=== PATIENT | female | born 1950 | race Caucasian/White ===

== ENCOUNTER 2016-11-06 16:38 | Inpatient (IN) | payer OTHER ==
[~2016-11-06] VITALS: Ht 165.1 cm; Wt 92.0 kg
[~2016-11-06 16:38] MED LIST: AMIO200T PO; AMLO-147 PO; DOCU-144 PO; FERR-55 PO; FURO20TA3 PO; GABA300C16 PO; ISOS30TA5 PO; LANT3I SC; LEVO50TA74 PO; LOVA40TA PO; METO50TA16 PO; MULT1CAP20 PO; NOVO3I SC; OMEP20CA16 PO; RIVA20TA PO; SUCR1TAB27 PO
[2016-11-06] MEDS ORDERED: CEFEPIME 2GM/50 ML (PMX) 50 ML IVPB STA (17:37)
[2016-11-06] MEDS ORDERED: LEVO88TA3 PO (17:57)
[2016-11-06] MEDS ORDERED: METO50TA16 PO (17:58)
[2016-11-06] MEDS ORDERED: FURO40TA4 PO (17:59)
[2016-11-06] MEDS ORDERED: LISI10TA2 PO (17:59)
[2016-11-06 18:00] LABS: ADD SCAN DIFF NO
[2016-11-06] MEDS ORDERED: SUCR1TAB56 PO (18:00)
[2016-11-06] MEDS ORDERED: VANCOMYCIN 1 GM (PMX) 250 ML IVPB ONE (18:00)
[2016-11-06] MEDS ORDERED: LABETALOL HCL 20MG INJ IV ONE (18:00)
[2016-11-06] MEDS ORDERED: OMEP40CA6 PO (18:01)
[2016-11-06] MEDS ORDERED: LANT3I SC (18:01)
[2016-11-06] MEDS ORDERED: INSU100C SQ (18:03)
[2016-11-06] MEDS ORDERED: NIFE30TA60 PO (18:04)
[2016-11-06] MEDS ORDERED: DOCU-159 PO (18:06)
[2016-11-06] MEDS ORDERED: ISOS30TA5 PO (18:10)
[2016-11-06 18:26] LABS: INR 0.98
[2016-11-06 18:27] LABS: PARTIAL THROMBOPLASTIN TIME 31.9 Sec (25.0-35.0)
[2016-11-06 18:31] LABS: ALANINE AMINOTRANSFERASE 23 IU/L (13-69); ALBUMIN 4.8 g/dl (3.3-4.9); ALBUMIN/GLOBULIN RATIO 1.29; ALKALINE PHOSPHATASE 107 IU/L (42-121); ANION GAP 14 (8-16); ASPARTATE AMINO TRANSFERASE 21 IU/L (15-46); BILIRUBIN,INDIRECT 0.1 mg/dl (0-1.1); BILIRUBIN,TOTAL 0.1 mg/dl (0.2-1.3); BLOOD UREA NITROGEN 31 mg/dl (7-20); CALCIUM 9.6 mg/dl (8.4-10.2); CARBON DIOXIDE 25 mmol/L (21-31); CHLORIDE 100 mmol/L (97-110); CREATININE 1.52 mg/dl (0.44-1.00); GLUCOSE 225 mg/dl (70-220); POTASSIUM 4.7 mmol/L (3.5-5.1); SODIUM 134 mmol/L (135-144); TOTAL PROTEIN 8.5 g/dl (6.1-8.1)
[2016-11-06 18:40] LABS: BASOPHILS % 0.2 % (0.0-2.0); EOSINOPHILS # 0.1 10^3/ul (0.0-0.5); EOSINOPHILS % 1.2 % (0.0-7.0); HEMOGLOBIN 9.8 g/dl (12.0-16.0); LYMPHOCYTES # 1.5 10^3/ul (0.8-2.9); LYMPHOCYTES % 14.5 % (15.0-51.0); MEAN CORPUSCULAR HEMOGLOBIN 30.7 pg (29.0-33.0); MEAN CORPUSCULAR HGB CONC 33.8 g/dl (32.0-37.0); MEAN CORPUSCULAR VOLUME 90.9 fl (82.0-101.0); MEAN PLATELET VOLUME 9.5 fl (7.4-10.4); MONOCYTE # 0.6 10^3/ul (0.3-0.9); MONOCYTES % 5.8 % (0.0-11.0); NEUTROPHIL # 8.2 10^3/ul (1.6-7.5); NEUTROPHILS % 77.8 % (39.0-77.0); PLATELET COUNT 297 10^3/UL (140-415); RED BLOOD COUNT 3.19 10^6/ul (4.20-5.40); WHITE BLOOD COUNT 10.5 10^3/ul (4.8-10.8)
[2016-11-06 18:43] LABS: TROPONIN-I < 0.012 ng/ml (0.00-0.12)
[2016-11-06 18:48] LABS: ADD UMIC YES; UR ASCORBIC ACID NEGATIVE (NEGATIVE); UR BILIRUBIN (Dip) NEGATIVE (NEGATIVE); UR BLOOD (Dip) 1+ mg/dL (NEGATIVE); UR CLARITY CLOUDY (CLEAR); UR COLOR YELLOW (YELLOW); UR GLUCOSE (Dip) NEGATIVE (NEGATIVE); UR KETONES (Dip) NEGATIVE (NEGATIVE); UR LEUKOCYTE ESTERASE (Dip) 3+ Leu/ul (NEGATIVE); UR NITRITE (Dip) NEGATIVE (NEGATIVE); UR RBC 7 /HPF (0-5); UR SPECIFIC GRAVITY (Dip) 1.011 (1.003-1.030); UR TOTAL PROTEIN (Dip) 1+ mg/dl (NEGATIVE); UR UROBILINOGEN (Dip) NEGATIVE (NEGATIVE); UR WBC CLUMPS FEW /HPF (NONE SEEN)
[2016-11-06] MEDS ORDERED: hydrALAzine 20 MG INJ IV ONE (19:00)
--- NOTE | 2016-11-06 19:04 | RADRPT ---
PROCEDURE: XR Chest. CLINICAL INDICATION: Possible sepsis. TECHNIQUE: Single frontal view of the chest was obtained. COMPARISON: None FINDINGS: The soft tissues are normal. There are degenerative osteophytes in the thoracic spine. The heart i s upper limits of normal for size. The cardiomediastinal silhouette and hilar structures are normal . The pulmonary vasculature is normal. There are vascular calcifications in the aortic arch. The robbin ngs are clear. The costophrenic angles are normal. IMPRESSION: 1. Atherosclerosis of the aortic arch. 2. No pleural effusion is identified. 3. Borderline cardiomegaly. RPTAT:AAJJ Physician Dennis Date Time Electronically viewed and signed by Physician Dennis on 11/06/2016 19:03 KHUSHBU/
[2016-11-06] MEDS ORDERED: morphine 4 MG/ML VIAL IV STA (19:12)
[2016-11-06] MEDS ORDERED: ACETAMINOPHEN 325 MG TAB PO PRN (19:30)
[2016-11-06] MEDS ORDERED: ONDANSETRON 4 MG INJ IV PRN ×2 (19:30→20:00)
[2016-11-06] MEDS ORDERED: NACL 0.9% 3 ML SYG IV SCH (20:00)
[2016-11-06] MEDS ORDERED: DOCUSATE SODIUM 100 MG CAP PO PRN (20:00)
[2016-11-06] MEDS ORDERED: SOD CHLORIDE 0.9% 1,000 ML IV ONE (20:00)
[2016-11-06] MEDS ORDERED: VANCOMYCIN IV PER PHARMACY XX SCH (20:00)
[2016-11-06] MEDS ORDERED: morphine 2 MG INJ IV PRN (20:00)
[2016-11-06] MEDS: ISOSORBIDE MONONITRATE(SR)30 MG TAB PO SCH (20:00)
[2016-11-06] MEDS ORDERED: GLUCOSE GEL 15 GRAM TUBE PO PRN ×2 (20:30)
[2016-11-06] MEDS ORDERED: DEXTROSE 50% 50 ML SYRINGE IV PRN ×2 (20:30)
[2016-11-06] MEDS ORDERED: GLUCAGON 1 MG INJ IM PRN (20:30)
[2016-11-06] MEDS ORDERED: GLUCOSE GEL 15 GRAM TUBE BUCCAL PRN (20:30)
--- NOTE | 2016-11-06 20:47 | RADRPT ---
PROCEDURE: XR Foot. CLINICAL INDICATION: Infected toe ulcer. TECHNIQUE: Three views of the right foot. COMPARISON: 01/22/2016 FINDINGS: There is soft tissue swelling and a soft tissue defect along the first toe. No soft tissue gas is id entified. No cortical lucency or periosteal reaction is identified to suggest osteomyelitis. No frac ture or dislocation is identified. The joint spaces are preserved. There are arterial calcificati ons. IMPRESSION: 1. Soft tissue swelling and ulceration along the first toe. 2. No radiographic evidence of osteomyelitis or gas gangrene. RPTAT: HTAR .Naseem Mora MD, Date Time Electronically viewed and signed by .Naseem Mora MD, on 11/06/2016 20:47 .R/
[2016-11-06] MEDS ORDERED: VANCOMYCIN 1 GM in NS 250 ML IVPB SCH (21:30)
[2016-11-06 21:43] VITALS: Ht 165.1 cm; Wt 92.0 kg
[2016-11-06 22:04] VITALS: BP 159/70
[2016-11-06] MEDS: LISINOPRIL 10 MG TAB PO SCH (22:20)
[2016-11-06] MEDS: ATORVASTATIN 10 MG TAB PO SCH (22:20)
[2016-11-06] MEDS: GABAPENTIN 300 MG CAP PO SCH (22:20)
[2016-11-06] MEDS: METOPROLOL (XL) 50 MG TAB PO SCH (22:21)
[2016-11-06] MEDS: INSULIN GLARGINE [LANtus] 3 ML PEN SC SCH (23:51)
[2016-11-06] MEDS: INSULIN ASPART [NOVOLOG] 3 ML PEN SC SCH (23:53)
[2016-11-07] MEDS: CEFTRIAXONE 1 GM/50 ML (PMX) 50 ML IVPB SCH ×2 (00:11→20:22)
[2016-11-07] MEDS ORDERED: PENDING SANTYL ORDER FOR WOUND CARE XX PRN (02:00)
[2016-11-07] MEDS: ACCU-CHEK XX SCH (02:12)
--- NOTE | 2016-11-07 02:54 | HP ---
Date/Time of Note Date/Time of Note DATE: 11/07/16 TIME: 02:54 Assessment/Plan Lines/Catheters IV C[facility] Type (from [facility]): Peripheral IV Assessment/Plan Chief Complaint/Hosp Course This is a 65 year female being admitted to the [facility] for: #1 right big toe wound/ulceration: At the current time there is no active drainage. Patient does report some mild pain for which she states Tylenol helps with her pain. X-rays of the foot did not show any evidence of osteomyelitis. However secondary to her lower extremity edema and cellulitis as well as pain in her big toe I will order an MRI for further evaluation of the right toe. Continue antibiotics at this time Vanco. Consult wound care. Consult podiatry. #2 right lower extremity cellulitis: Vancomycin IV pharmacy to dose. Continue to monitor for improvement. #3 UTI: Ceftriaxone IV. Will await urine cultures. #4 diabetes mellitus: Continue home medications and insulin sliding scale #5 atrial fibrillation: Continue amiodarone, Xarelto. #6 hypertension: Continue home medications, will hold Lasix at this time she does have a UTI. #7 hypothyroidism: Continue levothyroxine will check a TSH level #8 DVT and GI prophylaxis: Patient currently on Xarelto, Protonix Further treatment strategy will be implemented as per the clinical course. Problems: HPI/ROS Admit Date/Time Admit Date/Time Nov 06, 2016 at 19:20 Hx of Present Illness Chief complaint: Right big toe infection This is a 65-year-old female who comes in today for right big toe infection: Patient states that she went to go see her research physician today and after he examined her right big toe he recommended that she come in for further evaluation. Patient states that she has been dealing with big toe of the right foot infections for some time now. She previously approximately 2 months ago did have an MRI and at that time apparently there was no signs of osteomyelitis. At the current time she has pain in her right big toe and she also has noticed swelling and redness and warmth of her right lower extremity. Apparently she did have a Doppler done at her research physician's office yesterday and she was told that she did not have a blood clot apparently. He denies any fevers denies any chills or night sweats. Denies any shortness of breath or chest pain. Allergies: NKDA Medications: See MAR ROS Const: As per HPI Eyes : No pain discharge or redness or change in visual acuity ENT: No pain, sore throat, congestion, congestion, dysphagia or discharge Respiratory: No shortness of breath, cough, sputum, wheezing, or pleuritic pain Cardiovascular: No chest pain, palpitation, PND, or edema GI : no change in appetite, abdominal pain, nausea, vomiting, diarrhea, constipation, or change in the color his stool Genitourinary: No dysuria, hematuria, flank pain , discharge or CVA tenderness Musculoskeletal: As per HPI Skin: As per HPI Neuro: No headache, dizziness, syncope, seizure, focal weakness Endocrine: No polyuria, polydipsia, temperature intolerance Psych: No hallucination, depression, anxiety or suicidal ideation PMH/Family/Social Past Medical History Diabetes, hypertension, hyperlipidemia, A. fib, right big toe ulcer, hypothyroidism Past Surgical History Right big toe ulcer debridements, 4, right cataract surgery, cholecystectomy Past Surgical Hx: cholecystectomy Family History Significant Family History: diabetes (Mom and dad) Social History Alcohol Use: none Smoking Status: Never smoker Drug Use: none Exam/Review of Systems Vital Signs Vitals Vital Signs Date Time Temp Pulse Resp B/P Pulse Ox O2 Delivery O2 Flow Rate FiO2 11/06/16 22:04 98.4 63 159/70 96 11/06/16 20:13 22 Room Air Exam Exam General: This is a 65 year female laying comfortably in bed in no acute distress. HEENT: Atraumatic, normocephalic. The pupils are equal, round and reactive. Extraocular motor are intact Neck: Supple with full range of motion. No rigidity or meningismus Chest: Nontender Lungs: Clear to auscultation bilaterally no crackles rales or wheezing Heart: Normal S1-S2, Regular rhythm and rate. No appreciable murmur Abdomen: Soft , nontender, nondistended , bowel sounds are present. No guarding no rebound tenderness , No masses or organomegaly. No costovertebral temporal angle mass Extremities: Right big toe: Ulceration/wound no pus drainage noted. Right lower extremity at the level of the foot to below the knee: Erythema warmth and swelling. Negative Homans sign Neurologic: Normal mental status, speech normal, cranial nerves II through XII are intact, motor and sensory are intact, no focal weakness Skin: Right big toe: Ulceration/wound no pus drainage noted. Right lower extremity at the level of the foot to below the knee: Erythema warmth and swelling. Additional Comments PROCEDURE: XR Foot. CLINICAL INDICATION: Infected toe ulcer. TECHNIQUE: Three views of the right foot. COMPARISON: 01/22/2016 FINDINGS: There is soft tissue swelling and a soft tissue defect along the first toe. No soft tissue gas is identified. No cortical lucency or periosteal reaction is identified to suggest osteomyelitis. No fracture or dislocation is identified. The joint spaces are preserved. There are arterial calcifications. IMPRESSION: 1. Soft tissue swelling and ulceration along the first toe. 2. No radiographic evidence of osteomyelitis or gas gangrene. RPTAT: HTAR .Naseem Mora MD, MD Date Time Electronically viewed and signed by .Naseem Mora MD, MD on 11/06/2016 20:47 PROCEDURE: XR Chest. CLINICAL INDICATION: Possible sepsis. TECHNIQUE: Single frontal view of the chest was obtained. COMPARISON: None FINDINGS: The soft tissues are normal. There are degenerative osteophytes in the thoracic spine. The heart is upper limits of normal for size. The cardiomediastinal silhouette and hilar structures are normal. The pulmonary vasculature is normal. There are vascular calcifications in the aortic arch. The lungs are clear. The costophrenic angles are normal. IMPRESSION: 1. Atherosclerosis of the aortic arch. 2. No pleural effusion is identified. 3. Borderline cardiomegaly. RPTAT:AAJJ Physician Dennis Date Time Electronically viewed and signed by Physician Dennis on 11/06/2016 19:03 Labs Result Diagram: 11/06/16 1743 11/06/16 1743 Medications Medications Current Medications Amiodarone HCl (Cordarone) 200 mg DAILY PO ; Start 11/07/16 at 09:00 Docusate Sodium (Colace) 100 mg DAILY PRN PO CONSTIPATION; Start 11/06/16 at 20 :00 Ferrous Sulfate (Ferrous Sulfate (Ec)) 325 mg DAILY PO ; Start 11/07/16 at 09:00 Gabapentin (Neurontin) 300 mg BID PO Last administered on 11/06/16 22:20; Admin Dose 300 MG; Start 11/06/16 at 21:00 Insulin Glargine (Lantus) 26 unit QHS SC Last administered on 11/06/16 23:51; Admin Dose 26 UNIT; Start 11/06/16 at 21:00 Isosorbide Mononitrate (Imdur) 30 mg DAILY PO ; Start 11/06/16 at 20:00 Lisinopril (Zestril) 10 mg DAILY PO Last administered on 11/06/16 22:20; Admin Dose 10 MG; Start 11/06/16 at 20:00 Metoprolol Succinate (Toprol Xl) 50 mg BID PO Last administered on 11/06/16 22 :21; Admin Dose 50 MG; Start 11/06/16 at 21:00 Atorvastatin Calcium (Lipitor) 10 mg DAILY@21 PO Last administered on 22:20; Admin Dose 10 MG; Start 11/06/16 at 21:00 Pantoprazole (Protonix Tab) 40 mg DAILY@06 PO ; Start 11/07/16 at 06:00 Ondansetron HCl (Zofran Inj) 4 mg Q6H PRN IV NAUSEA AND/OR VOMITING; Start at 20:00 Acetaminophen (Tylenol Tab) 650 mg Q6H PRN PO PAIN LEVEL 1-3 OR FEVER; Start at 20:00 Morphine Sulfate 2 mg 2 mg Q4H PRN IV PAIN LEVEL 7-10; Start 11/06/16 at 20:00 Ceftriaxone Sodium (Rocephin) 50 ml @ 100 mls/hr Q24H IVPB Last administered on 11/07/16 00:11; Admin Dose 100 MLS/HR; Start 11/06/16 at 20:00 Miscellaneous Information 1 ea NOTE XX ; Start 11/06/16 at 20:30 Glucose (Glutose) 15 gm Q15M PRN PO DECREASED GLUCOSE; Start 11/06/16 at 20:30 Glucose (Glutose) 22.5 gm Q15M PRN PO DECREASED GLUCOSE; Start 11/06/16 at 20: 30 Dextrose (D50w Syringe) 25 ml Q15M PRN IV DECREASED GLUCOSE; Start 11/06/16 at 20:30 Dextrose (D50w Syringe) 50 ml Q15M PRN IV DECREASED GLUCOSE; Start 11/06/16 at 20:30 Glucagon (Glucagen) 1 mg Q15M PRN IM DECREASED GLUCOSE; Start 11/06/16 at 20:30 Glucose (Glutose) 15 gm Q15M PRN BUCCAL DECREASED GLUCOSE; Start 11/06/16 at 20 :30 Diagnostic Test (Pha) 1 ea 1 ea 02 XX Last administered on 11/07/16t 02:12; Admin Dose 1 EA; Start 11/07/16 at 02:00 Vancomycin HCl/ Sodium Chloride (Vancocin/NS) 250 ml @ 83.333 mls/ hr Q24H IVPB ; Start 11/07/16 at 20:00 Miscellaneous [facility] This patient aguilar... PRN PRN XX WOUND CARE; Start 11/07/16 at 02:00 YUE BUSTOS Nov 07, 2016 02:54
[2016-11-07] MEDS: PANTOPRAZOLE (EC) 40 MG TAB PO SCH (05:15)
[2016-11-07] MEDS ORDERED: COLLAGENASE 30 GM TUBE TOP PRN (05:30)
[2016-11-07 06:03] LABS: ADD SCAN DIFF NO
[2016-11-07 06:09] LABS: BASOPHILS % 0.3 % (0.0-2.0); EOSINOPHILS # 0.1 10^3/ul (0.0-0.5); HEMATOCRIT 26.9 % (37.0-47.0); HEMOGLOBIN 8.9 g/dl (12.0-16.0); LYMPHOCYTES # 1.1 10^3/ul (0.8-2.9); MEAN CORPUSCULAR HEMOGLOBIN 30.5 pg (29.0-33.0); MEAN CORPUSCULAR HGB CONC 33.1 g/dl (32.0-37.0); MEAN CORPUSCULAR VOLUME 92.1 fl (82.0-101.0); MEAN PLATELET VOLUME 9.5 fl (7.4-10.4); MONOCYTE # 0.4 10^3/ul (0.3-0.9); MONOCYTES % 6.4 % (0.0-11.0); NEUTROPHIL # 4.7 10^3/ul (1.6-7.5); NEUTROPHILS % 73.8 % (39.0-77.0); PLATELET COUNT 247 10^3/UL (140-415); RED BLOOD COUNT 2.92 10^6/ul (4.20-5.40); RED CELL DISTRIBUTION WIDTH 13.2 % (11.5-14.5); WHITE BLOOD COUNT 6.4 10^3/ul (4.8-10.8)
[2016-11-07 06:34] LABS: ALBUMIN 3.7 g/dl (3.3-4.9); ALBUMIN/GLOBULIN RATIO 1.15; CREATININE 1.19 mg/dl (0.44-1.00); MAGNESIUM 1.8 mg/dl (1.7-2.5); POTASSIUM 4.3 mmol/L (3.5-5.1); TOTAL PROTEIN 6.9 g/dl (6.1-8.1)
[2016-11-07] MEDS: LEVOTHYROXINE 88 MCG TAB PO SCH (06:43)
[2016-11-07 07:06] LABS: THYROID STIMULATING HORMONE 3.7 MIU/L (0.465-4.680)
[2016-11-07] MEDS: LISINOPRIL 10 MG TAB PO SCH (08:04)
[2016-11-07] MEDS: GABAPENTIN 300 MG CAP PO SCH ×2 (08:05→20:22)
[2016-11-07] MEDS: INSULIN ASPART [NOVOLOG] 3 ML PEN SC SCH ×6 (08:05→20:25)
[2016-11-07] MEDS: FERROUS SULFATE (EC) 325 MG TAB PO SCH (08:06)
[2016-11-07] MEDS: METOPROLOL (XL) 50 MG TAB PO SCH ×2 (08:06→21:00)
[2016-11-07] MEDS: COLLAGENASE 30 GM TUBE TOP SCH (08:07)
[2016-11-07 08:13] VITALS: BP 163/73; RESP 18
[2016-11-07] MEDS: ACETAMINOPHEN 325 MG TAB PO PRN ×2 (08:13→13:55)
--- NOTE | 2016-11-07 08:49 | RADRPT ---
PROCEDURE: US DVT. CLINICAL INDICATION: Right lower extremity pain. TECHNIQUE: Multiple longitudinal and transverse images of the right lower extremity veins were obt ained with feliciano scale and color Doppler imaging. 2D grayscale measurements with compression, color Doppler flow, and augmentation was performed. The calf veins were interrogated as well. COMPARISON: 03/19/2016 FINDINGS: The right common femoral, superficial femoral and popliteal veins are normally compressible througho ut. Color flow demonstrates normal filling of the vessel. Normal waveforms are visualized and ther e is normal response to augmentation. IMPRESSION: 1. No evidence of a deep vein thrombosis involving the right lower extremity. RPTAT: AACC Physician Howie Date Time Electronically viewed and signed by Physician Howie on 11/07/2016 08:49 /
[2016-11-07] MEDS: ISOSORBIDE MONONITRATE(SR)30 MG TAB PO SCH (09:24)
[2016-11-07] MEDS: AMIODARONE 200 MG TAB PO SCH (09:24)
[2016-11-07 09:25] VITALS: BP 151/67; PULSE 60
[2016-11-07] MEDS: NIFEdipine (XL) 60 MG TAB PO SCH (09:25)
--- NOTE | 2016-11-07 11:29 | PN ---
Date/Time of Note Date/Time of Note DATE: 11/07/16 TIME: 11:23 Assessment/Plan VTE Prophylaxis VTE Prophylaxis Intervention: SCD's Lines/Catheters IV Catheter Type (from Nrsg): Peripheral IV Urinary Cath still in place: No Assessment/Plan Assessment/Plan 65 yo F with Dm2, R great toe ulcer admitted for R toe pain and swelling, concern for cellulitis v OM MRI pending cont abx podiatry following increase home insulin DM diet DVT prophx Subjective 24 Hr Interval Summary Free Text/Dictation Pt feels ok. Seen with daughter at bedside who served as interpreter for the deaf Exam/Review of Systems Vital Signs Vitals Vital Signs Date Time Temp Pulse Resp B/P Pulse Ox O2 Delivery O2 Flow Rate FiO2 11/07/16 09:25 60 151/67 11/07/16 08:13 98.2 18 98 11/06/16 20:13 Room Air Intake and Output 11/06/16 11/06/16 11/07/16 15:00 23:00 07:00 Intake Total 2450 ml Balance 2450 ml Exam nad laying in bed no mrg lungs clear abd soft 2 cm ulceration noted to distal aspect of R great toe, white/granular base doppler neg for DVT MRI pending a1c 9s Results Result Diagram: 11/07/16 0515 11/07/16 0515 Results 24 hrs Laboratory Tests Test 11/06/16 17:43 11/06/16 18:10 11/06/16 18:20 11/06/16 22:30 White Blood Count 10.5 Red Blood Count 3.19 L Hemoglobin 9.8 L Hematocrit 29.0 L Mean Corpuscular Volume 90.9 Mean Corpuscular Hemoglobin 30.7 Mean Corpuscular Hemoglobin Concent 33.8 Red Cell Distribution Width 13.0 Platelet Count 297 Mean Platelet Volume 9.5 # Neutrophils % 77.8 H Lymphocytes % 14.5 L Monocytes % 5.8 Eosinophils % 1.2 Basophils % 0.2 Nucleated Red Blood Cells % 0.0 Neutrophils # 8.2 H Lymphocytes # 1.5 Monocytes # 0.6 Eosinophils # 0.1 Basophils # 0.0 Nucleated Red Blood Cells # 0.0 Prothrombin Time 13.0 # Prothrombin Time Ratio 1.0 INR International Normalized Ratio 0.98 Activated Partial Thromboplast Time 31.9 Sodium Level 134 L Potassium Level 4.7 Chloride Level 100 Carbon Dioxide Level 25 Anion Gap 14 Blood Urea Nitrogen 31 H Creatinine 1.52 H Glucose Level 225 H Calcium Level 9.6 Total Bilirubin 0.1 L Direct Bilirubin 0.00 Indirect Bilirubin 0.1 Aspartate Amino Transf (AST/SGOT) 21 Alanine Aminotransferase (ALT/SGPT) 23 Alkaline Phosphatase 107 Troponin I < 0.012 Total Protein 8.5 H Albumin 4.8 Globulin 3.70 H Albumin/Globulin Ratio 1.29 Urine Color YELLOW Urine Clarity CLOUDY A Urine pH 5.0 Urine Specific Gloster 1.011 Urine Ketones NEGATIVE Urine Nitrite NEGATIVE Urine Bilirubin NEGATIVE Urine Urobilinogen NEGATIVE Urine Leukocyte Esterase 3+ H Urine Microscopic RBC 7 H Urine Microscopic WBC 104 H Urine Hemoglobin 1+ H Urine Glucose NEGATIVE Urine Total Protein 1+ H Lactic Acid Level 1.0 Bedside Glucose 309 H Test 11/07/16 02:10 11/07/16 05:15 11/07/16 07:55 Bedside Glucose 251 H 169 White Blood Count 6.4 # Red Blood Count 2.92 L Hemoglobin 8.9 L Hematocrit 26.9 L Mean Corpuscular Volume 92.1 Mean Corpuscular Hemoglobin 30.5 Mean Corpuscular Hemoglobin Concent 33.1 Red Cell Distribution Width 13.2 Platelet Count 247 Mean Platelet Volume 9.5 Neutrophils % 73.8 Lymphocytes % 17.0 Monocytes % 6.4 Eosinophils % 2.0 Basophils % 0.3 Nucleated Red Blood Cells % 0.0 Neutrophils # 4.7 Lymphocytes # 1.1 Monocytes # 0.4 Eosinophils # 0.1 Basophils # 0.0 Nucleated Red Blood Cells # 0.0 Sodium Level 143 Potassium Level 4.3 Chloride Level 111 H Carbon Dioxide Level 22 Anion Gap 14 Blood Urea Nitrogen 26 H Creatinine 1.19 H Glucose Level 166 Hemoglobin A1c 9.1 H Calcium Level 9.0 Magnesium Level 1.8 Total Bilirubin 0.0 L Direct Bilirubin 0.00 Indirect Bilirubin 0.0 Aspartate Amino Transf (AST/SGOT) 14 L Alanine Aminotransferase (ALT/SGPT) 18 Alkaline Phosphatase 79 Total Protein 6.9 # Albumin 3.7 # Globulin 3.20 Albumin/Globulin Ratio 1.15 Thyroid Stimulating Hormone (TSH) 3.700 Medications Medications Current Medications Amiodarone HCl (Cordarone) 200 mg DAILY PO Last administered on 11/07/16t 09:24 ; Admin Dose 200 MG; Start 11/07/16 at 09:00 Docusate Sodium (Colace) 100 mg DAILY PRN PO CONSTIPATION; Start 11/06/16 at 20 :00 Ferrous Sulfate (Ferrous Sulfate (Ec)) 325 mg DAILY PO Last administered on 08:06; Admin Dose 325 MG; Start 11/07/16 at 09:00 Gabapentin (Neurontin) 300 mg BID PO Last administered on 11/07/16 08:05; Admin Dose 300 MG; Start 11/06/16 at 21:00 Insulin Glargine (Lantus) 26 unit QHS SC Last administered on 11/06/16 23:51; Admin Dose 26 UNIT; Start 11/06/16 at 21:00 Isosorbide Mononitrate (Imdur) 30 mg DAILY PO Last administered on 11/07/16 09 :24; Admin Dose 30 MG; Start 11/06/16 at 20:00 Lisinopril (Zestril) 10 mg DAILY PO Last administered on 11/07/16 08:04; Admin Dose 10 MG; Start 11/06/16 at 20:00 Metoprolol Succinate (Toprol Xl) 50 mg BID PO Last administered on 11/07/16 08 :06; Admin Dose 50 MG; Start 11/06/16 at 21:00 Atorvastatin Calcium (Lipitor) 10 mg DAILY@21 PO Last administered on 22:20; Admin Dose 10 MG; Start 11/06/16 at 21:00 Pantoprazole (Protonix Tab) 40 mg DAILY@06 PO Last administered on 11/07/16 05 :15; Admin Dose 40 MG; Start 11/07/16 at 06:00 Ondansetron HCl (Zofran Inj) 4 mg Q6H PRN IV NAUSEA AND/OR VOMITING; Start at 20:00 Acetaminophen (Tylenol Tab) 650 mg Q6H PRN PO PAIN LEVEL 1-3 OR FEVER Last administered on 11/07/16 08:13; Admin Dose 650 MG; Start 11/06/16 at 20:00 Morphine Sulfate 2 mg 2 mg Q4H PRN IV PAIN LEVEL 7-10; Start 11/06/16 at 20:00 Ceftriaxone Sodium (Rocephin) 50 ml @ 100 mls/hr Q24H IVPB Last administered on 11/07/16 00:11; Admin Dose 100 MLS/HR; Start 11/06/16 at 20:00 Miscellaneous Information 1 ea NOTE XX ; Start 11/06/16 at 20:30 Glucose (Glutose) 15 gm Q15M PRN PO DECREASED GLUCOSE; Start 11/06/16 at 20:30 Glucose (Glutose) 22.5 gm Q15M PRN PO DECREASED GLUCOSE; Start 11/06/16 at 20: 30 Dextrose (D50w Syringe) 25 ml Q15M PRN IV DECREASED GLUCOSE; Start 11/06/16 at 20:30 Dextrose (D50w Syringe) 50 ml Q15M PRN IV DECREASED GLUCOSE; Start 11/06/16 at 20:30 Glucagon (Glucagen) 1 mg Q15M PRN IM DECREASED GLUCOSE; Start 11/06/16 at 20:30 Glucose (Glutose) 15 gm Q15M PRN BUCCAL DECREASED GLUCOSE; Start 11/06/16 at 20 :30 Diagnostic Test (Pha) 1 ea 1 ea 02 XX Last administered on 11/07/16 02:12; Admin Dose 1 EA; Start 11/07/16 at 02:00 Vancomycin HCl/ Sodium Chloride (Vancocin/NS) 250 ml @ 83.333 mls/ hr Q24H IVPB ; Start 11/07/16 at 20:00 Nifedipine (Procardia Xl) 60 mg DAILY PO Last administered on 11/07/16 09:25; Admin Dose 60 MG; Start 11/07/16 at 09:00 Collagenase (Santyl) 1 applic DAILY TOP Last administered on 11/07/16 08:07; Admin Dose 1 APPLIC; Start 11/07/16 at 09:00 Collagenase (Santyl) 1 applic PRN PRN TOP SOILED OR DISLODGED DRESSING; Start 11/07/16 at 05:30 PRISCILLA CHO MD Nov 07, 2016 11:29
[2016-11-07 13:55] VITALS: BP 109/53; PULSE 64; RESP 16
[2016-11-07] MEDS: RIVAROXABAN 20 MG TABLET PO SCH (18:28)
[2016-11-07] MEDS: ATORVASTATIN 10 MG TAB PO SCH (20:22)
[2016-11-07] MEDS: INSULIN GLARGINE [LANtus] 3 ML PEN SC SCH (20:24)
[2016-11-07 21:02] VITALS: BP 114/56; RESP 16
[2016-11-07] MEDS: VANCOMYCIN 1.25 GM in SOD CHLORIDE 0.9% 250 ML IVPB SCH (21:19)
--- NOTE | 2016-11-07 22:51 | CONS ---
Date/Time of Note Date/Time of Note DATE: 11/07/16 TIME: 22:51 Consultation Date/Type/Reason Admit Date/Time Nov 06, 2016 at 19:20 Past Surgical History Past Surgical Hx: cholecystectomy Social History Alcohol Use: none Smoking Status: Never smoker Drug Use: none Exam/Review of Systems Vital Signs Vitals Vital Signs Date Time Temp Pulse Resp B/P Pulse Ox O2 Delivery O2 Flow Rate FiO2 11/07/16 21:02 97.7 55 16 114/56 97 11/07/16 13:55 Room Air Intake and Output 11/06/16 11/06/16 11/07/16 15:00 23:00 07:00 Intake Total 2450 ml Balance 2450 ml Results Result Diagram: 11/07/16 0515 11/07/16 0515 Results 24 hrs Laboratory Tests Test 11/07/16 02:10 11/07/16 05:15 11/07/16 07:55 11/07/16 12:22 Bedside Glucose 251 H 169 266 H White Blood Count 6.4 # Red Blood Count 2.92 L Hemoglobin 8.9 L Hematocrit 26.9 L Mean Corpuscular Volume 92.1 Mean Corpuscular Hemoglobin 30.5 Mean Corpuscular Hemoglobin Concent 33.1 Red Cell Distribution Width 13.2 Platelet Count 247 Mean Platelet Volume 9.5 Neutrophils % 73.8 Lymphocytes % 17.0 Monocytes % 6.4 Eosinophils % 2.0 Basophils % 0.3 Nucleated Red Blood Cells % 0.0 Neutrophils # 4.7 Lymphocytes # 1.1 Monocytes # 0.4 Eosinophils # 0.1 Basophils # 0.0 Nucleated Red Blood Cells # 0.0 Sodium Level 143 Potassium Level 4.3 Chloride Level 111 H Carbon Dioxide Level 22 Anion Gap 14 Blood Urea Nitrogen 26 H Creatinine 1.19 H Glucose Level 166 Hemoglobin A1c 9.1 H Calcium Level 9.0 Magnesium Level 1.8 Total Bilirubin 0.0 L Direct Bilirubin 0.00 Indirect Bilirubin 0.0 Aspartate Amino Transf (AST/SGOT) 14 L Alanine Aminotransferase (ALT/SGPT) 18 Alkaline Phosphatase 79 Total Protein 6.9 # Albumin 3.7 # Globulin 3.20 Albumin/Globulin Ratio 1.15 Thyroid Stimulating Hormone (TSH) 3.700 Test 11/07/16 13:36 11/07/16 17:12 11/07/16 18:25 11/07/16 20:20 Bedside Glucose 252 H 147 174 251 H Medications Medications Current Medications Amiodarone HCl (Cordarone) 200 mg DAILY PO Last administered on 11/07/16 09:24 ; Admin Dose 200 MG; Start 11/07/16 at 09:00 Docusate Sodium (Colace) 100 mg DAILY PRN PO CONSTIPATION; Start 11/06/16 at 20 :00 Ferrous Sulfate (Ferrous Sulfate (Ec)) 325 mg DAILY PO Last administered on 08:06; Admin Dose 325 MG; Start 11/07/16 at 09:00 Gabapentin (Neurontin) 300 mg BID PO Last administered on 11/07/16 20:22; Admin Dose 300 MG; Start 11/06/16 at 21:00 Insulin Glargine (Lantus) 26 unit QHS SC Last administered on 11/07/16 20:24; Admin Dose 26 UNIT; Start 11/06/16 at 21:00 Isosorbide Mononitrate (Imdur) 30 mg DAILY PO Last administered on 11/07/16 09 :24; Admin Dose 30 MG; Start 11/06/16 at 20:00 Lisinopril (Zestril) 10 mg DAILY PO Last administered on 11/07/16 08:04; Admin Dose 10 MG; Start 11/06/16 at 20:00 Metoprolol Succinate (Toprol Xl) 50 mg BID PO Last administered on 11/07/16 08 :06; Admin Dose 50 MG; Start 11/06/16 at 21:00 Atorvastatin Calcium (Lipitor) 10 mg DAILY@21 PO Last administered on 20:22; Admin Dose 10 MG; Start 11/06/16 at 21:00 Pantoprazole (Protonix Tab) 40 mg DAILY@06 PO Last administered on 11/07/16 05 :15; Admin Dose 40 MG; Start 11/07/16 at 06:00 Ondansetron HCl (Zofran Inj) 4 mg Q6H PRN IV NAUSEA AND/OR VOMITING; Start at 20:00 Acetaminophen (Tylenol Tab) 650 mg Q6H PRN PO PAIN LEVEL 1-3 OR FEVER Last administered on 11/07/16 13:55; Admin Dose 650 MG; Start 11/06/16 at 20:00 Morphine Sulfate 2 mg 2 mg Q4H PRN IV PAIN LEVEL 7-10; Start 11/06/16 at 20:00 Ceftriaxone Sodium (Rocephin) 50 ml @ 100 mls/hr Q24H IVPB Last administered on 11/07/16 20:22; Admin Dose 100 MLS/HR; Start 11/06/16 at 20:00 Miscellaneous Information 1 ea NOTE XX ; Start 11/06/16 at 20:30 Glucose (Glutose) 15 gm Q15M PRN PO DECREASED GLUCOSE; Start 11/06/16 at 20:30 Glucose (Glutose) 22.5 gm Q15M PRN PO DECREASED GLUCOSE; Start 11/06/16 at 20: 30 Dextrose (D50w Syringe) 25 ml Q15M PRN IV DECREASED GLUCOSE; Start 11/06/16 at 20:30 Dextrose (D50w Syringe) 50 ml Q15M PRN IV DECREASED GLUCOSE; Start 11/06/16 at 20:30 Glucagon (Glucagen) 1 mg Q15M PRN IM DECREASED GLUCOSE; Start 11/06/16 at 20:30 Glucose (Glutose) 15 gm Q15M PRN BUCCAL DECREASED GLUCOSE; Start 11/06/16 at 20 :30 Diagnostic Test (Pha) 1 ea 1 ea 02 XX Last administered on 11/07/16 02:12; Admin Dose 1 EA; Start 11/07/16 at 02:00 Vancomycin HCl/ Sodium Chloride (Vancocin/NS) 250 ml @ 83.333 mls/ hr Q24H IVPB Last administered on 11/07/16 21:19; Admin Dose 83.333 MLS/HR; Start at 20:00 Nifedipine (Procardia Xl) 60 mg DAILY PO Last administered on 11/07/16 09:25; Admin Dose 60 MG; Start 11/07/16 at 09:00 Collagenase (Santyl) 1 applic DAILY TOP Last administered on 11/07/16 08:07; Admin Dose 1 APPLIC; Start 11/07/16 at 09:00 Collagenase (Santyl) 1 applic PRN PRN TOP SOILED OR DISLODGED DRESSING; Start 11/07/16 at 05:30 Furosemide (Lasix) 60 mg DAILY PO ; Start 11/08/16 at 09:00 Multivitamins Therapeutic (Theragran) 1 tab DAILY PO ; Start 6/30/17 at 09:00 Sucralfate (Carafate) 1 gm DAILY PO ; Start 11/08/16 at 09:00 MARIA LUISA ESPOSITO DPM Nov 07, 2016 22:51
[2016-11-08] MEDS: ACETAMINOPHEN 325 MG TAB PO PRN (01:09)
[2016-11-08] MEDS: ACCU-CHEK XX SCH (02:08)
[2016-11-08] MEDS: PANTOPRAZOLE (EC) 40 MG TAB PO SCH (06:17)
[2016-11-08] MEDS: LEVOTHYROXINE 88 MCG TAB PO SCH (06:17)
[2016-11-08 06:40] LABS: CREATININE 1.34 mg/dl (0.44-1.00)
[2016-11-08 08:05] VITALS: BP 137/64; RESP 16
--- NOTE | 2016-11-08 08:33 | RADRPT ---
PROCEDURE: MRI OF THE RIGHT FOOT CLINICAL INDICATION: Right foot pain and swelling, big toe infection, concern for osteomyelitis TECHNIQUE: Multiple MRI images were obtained utilizing multiple sequences in multiple planes. Image s were interpreted on a high-resolution PACS system. COMPARISON: Radiographs of the right foot dated November 06, 2016 FINDINGS: There is soft tissue swelling of the great digit. There is a mild bone marrow edema within the firs t distal phalanx (axial 7 and sagittal 8), without definite T1 infiltration or focal cortical erosiv e change, not definitive at this time for osteomyelitis. The remaining digits demonstrate no evidence of osteomyelitis. There is forefoot soft tissue swelli ng without drainable fluid collection. There are moderate midfoot degenerative changes, incompletel y assessed. There are hammertoe deformities of the second, third, and fourth digits. There is no evidence of tendon tear. There is intrinsic foot muscle atrophy and edema. IMPRESSION: 1. Mild nonspecific marrow edema within the first distal phalanx, not definitive for osteomyelitis a t this time, possibly reactive in nature. Early osteomyelitis is difficult to entirely exclude and i f clinically warranted short-term follow-up MRI could be considered for further assessment. 2. Soft tissue swelling of the forefoot and first digit without drainable fluid collection, query ce llulitis. 3. Intrinsic foot muscle atrophy and edema, query diabetic microangiopathy. RPTAT: [facility] .Harpal Galarza MD, Date Time Electronically viewed and signed by .Harpal Galarza MD, on 11/08/2016 08:33 .K/
[2016-11-08] MEDS: INSULIN ASPART [NOVOLOG] 3 ML PEN SC SCH ×7 (08:56→21:00)
[2016-11-08] MEDS: SUCRALFATE 1 GM TAB PO SCH (08:59)
[2016-11-08] MEDS: MULTIVITAMINS THERAPEUTIC TAB PO SCH (08:59)
[2016-11-08] MEDS: ISOSORBIDE MONONITRATE(SR)30 MG TAB PO SCH (08:59)
[2016-11-08] MEDS: LISINOPRIL 10 MG TAB PO SCH (09:00)
[2016-11-08] MEDS: AMIODARONE 200 MG TAB PO SCH (09:00)
[2016-11-08] MEDS: FUROSEMIDE 20 MG TAB PO SCH (09:01)
[2016-11-08] MEDS: METOPROLOL (XL) 50 MG TAB PO SCH ×2 (09:02→21:15)
[2016-11-08] MEDS: NIFEdipine (XL) 60 MG TAB PO SCH (09:03)
[2016-11-08] MEDS: GABAPENTIN 300 MG CAP PO SCH ×2 (09:04→21:13)
[2016-11-08] MEDS: FERROUS SULFATE (EC) 325 MG TAB PO SCH (09:06)
[2016-11-08] MEDS: COLLAGENASE 30 GM TUBE TOP SCH (09:08)
--- NOTE | 2016-11-08 13:16 | PN ---
Date/Time of Note Date/Time of Note DATE: 11/08/16 TIME: 13:13 Assessment/Plan VTE Prophylaxis VTE Prophylaxis Intervention: other (xarleto) Lines/Catheters IV Catheter Type (from Nrsg): Saline Lock Urinary Cath still in place: No Assessment/Plan Assessment/Plan 65 yo F with Dm2, R great toe ulcer admitted for R toe pain and swelling, concern for cellulitis v OM MRI without overwhelming e/o OM cont abx podiatry following-->await recs increase home insulin-->will total up SSI needs and add on to standing orders tomorrow DM diet cont home xarelto, IS Subjective 24 Hr Interval Summary Free Text/Dictation Feeling well. MRI results reviewed with patient and her daughter Exam/Review of Systems Vital Signs Vitals Vital Signs Date Time Temp Pulse Resp B/P Pulse Ox O2 Delivery O2 Flow Rate FiO2 11/08/16 08:05 98.1 58 16 137/64 95 11/07/16 13:55 Room Air Intake and Output 11/07/16 11/07/16 11/08/16 15:00 23:00 07:00 Intake Total 1290 ml 970 ml Balance 1290 ml 970 ml Exam nad, pleasant no mrg lungs clear abd soft great toe wrapped MRI without overwhelming evidence of OM Results Result Diagram: 11/07/16 0515 11/08/16 0500 Results 24 hrs Laboratory Tests Test 11/07/16 13:36 11/07/16 17:12 11/07/16 18:25 11/07/16 20:20 Bedside Glucose 252 H 147 174 251 H Test 11/08/16 01:04 11/08/16 05:00 11/08/16 07:49 11/08/16 11:47 Bedside Glucose 233 H 194 217 Blood Urea Nitrogen 31 H Creatinine 1.34 H Medications Medications Current Medications Amiodarone HCl (Cordarone) 200 mg DAILY PO Last administered on 11/07/16 09:24 ; Admin Dose 200 MG; Start 11/07/16 at 09:00 Docusate Sodium (Colace) 100 mg DAILY PRN PO CONSTIPATION; Start 11/06/16 at 20 :00 Ferrous Sulfate (Ferrous Sulfate (Ec)) 325 mg DAILY PO Last administered on 09:06; Admin Dose 325 MG; Start 11/07/16 at 09:00 Gabapentin (Neurontin) 300 mg BID PO Last administered on 11/08/16 09:04; Admin Dose 300 MG; Start 11/06/16 at 21:00 Insulin Glargine (Lantus) 26 unit QHS SC Last administered on 11/07/16 20:24; Admin Dose 26 UNIT; Start 11/06/16 at 21:00 Isosorbide Mononitrate (Imdur) 30 mg DAILY PO Last administered on 11/08/16 08 :59; Admin Dose 30 MG; Start 11/06/16 at 20:00 Lisinopril (Zestril) 10 mg DAILY PO Last administered on 11/07/16 08:04; Admin Dose 10 MG; Start 11/06/16 at 20:00 Metoprolol Succinate (Toprol Xl) 50 mg BID PO Last administered on 11/08/16 09 :02; Admin Dose 50 MG; Start 11/06/16 at 21:00 Atorvastatin Calcium (Lipitor) 10 mg DAILY@21 PO Last administered on 20:22; Admin Dose 10 MG; Start 11/06/16 at 21:00 Pantoprazole (Protonix Tab) 40 mg DAILY@06 PO Last administered on 11/08/16 06 :17; Admin Dose 40 MG; Start 11/07/16 at 06:00 Ondansetron HCl (Zofran Inj) 4 mg Q6H PRN IV NAUSEA AND/OR VOMITING; Start at 20:00 Acetaminophen (Tylenol Tab) 650 mg Q6H PRN PO PAIN LEVEL 1-3 OR FEVER Last administered on 11/08/16 01:09; Admin Dose 650 MG; Start 11/06/16 at 20:00 Morphine Sulfate 2 mg 2 mg Q4H PRN IV PAIN LEVEL 7-10; Start 11/06/16 at 20:00 Ceftriaxone Sodium (Rocephin) 50 ml @ 100 mls/hr Q24H IVPB Last administered on 11/07/16 20:22; Admin Dose 100 MLS/HR; Start 11/06/16 at 20:00 Miscellaneous Information 1 ea NOTE XX ; Start 11/06/16 at 20:30 Glucose (Glutose) 15 gm Q15M PRN PO DECREASED GLUCOSE; Start 11/06/16 at 20:30 Glucose (Glutose) 22.5 gm Q15M PRN PO DECREASED GLUCOSE; Start 11/06/16 at 20: 30 Dextrose (D50w Syringe) 25 ml Q15M PRN IV DECREASED GLUCOSE; Start 11/06/16 at 20:30 Dextrose (D50w Syringe) 50 ml Q15M PRN IV DECREASED GLUCOSE; Start 11/06/16 at 20:30 Glucagon (Glucagen) 1 mg Q15M PRN IM DECREASED GLUCOSE; Start 11/06/16 at 20:30 Glucose (Glutose) 15 gm Q15M PRN BUCCAL DECREASED GLUCOSE; Start 11/06/16 at 20 :30 Diagnostic Test (Pha) 1 ea 1 ea 02 XX Last administered on 11/08/16 02:08; Admin Dose 1 EA; Start 11/07/16 at 02:00 Vancomycin HCl/ Sodium Chloride (Vancocin/NS) 250 ml @ 83.333 mls/ hr Q24H IVPB Last administered on 11/07/16 21:19; Admin Dose 83.333 MLS/HR; Start at 20:00 Nifedipine (Procardia Xl) 60 mg DAILY PO Last administered on 11/08/16 09:03; Admin Dose 60 MG; Start 11/07/16 at 09:00 Collagenase (Santyl) 1 applic DAILY TOP Last administered on 11/08/16 09:08; Admin Dose 1 APPLIC; Start 11/07/16 at 09:00 Collagenase (Santyl) 1 applic PRN PRN TOP SOILED OR DISLODGED DRESSING; Start 11/07/16 at 05:30 Furosemide (Lasix) 60 mg DAILY PO Last administered on 11/08/16 09:01; Admin Dose 60 MG; Start 11/08/16 at 09:00 Multivitamins Therapeutic (Theragran) 1 tab DAILY PO Last administered on 08:59; Admin Dose 1 TAB; Start 11/08/16 at 09:00 Sucralfate (Carafate) 1 gm DAILY PO Last administered on 11/08/16 08:59; Admin Dose 1 GM; Start 11/08/16 at 09:00 PRICSILLA CHO MD Nov 08, 2016 13:15
[2016-11-08] MEDS: RIVAROXABAN 20 MG TABLET PO SCH (17:57)
[2016-11-08] MEDS: CEFTRIAXONE 1 GM/50 ML (PMX) 50 ML IVPB SCH (19:59)
[2016-11-08] MEDS: VANCOMYCIN 1.25 GM in SOD CHLORIDE 0.9% 250 ML IVPB SCH (21:13)
[2016-11-08] MEDS: INSULIN GLARGINE [LANtus] 3 ML PEN SC SCH (21:20)
[2016-11-08] MEDS: ATORVASTATIN 10 MG TAB PO SCH (21:25)
[2016-11-08 21:58] VITALS: BP 144/64; RESP 16
[2016-11-09] MEDS: ACCU-CHEK XX SCH (02:00)
[2016-11-09] MEDS: PANTOPRAZOLE (EC) 40 MG TAB PO SCH (06:24)
[2016-11-09 08:11] VITALS: BP 150/65; RESP 16
[2016-11-09] MEDS: LEVOTHYROXINE 88 MCG TAB PO SCH (08:26)
[2016-11-09] MEDS: FUROSEMIDE 20 MG TAB PO SCH (08:27)
[2016-11-09] MEDS: AMIODARONE 200 MG TAB PO SCH (08:27)
[2016-11-09] MEDS: METOPROLOL (XL) 50 MG TAB PO SCH (08:29)
[2016-11-09] MEDS: LISINOPRIL 10 MG TAB PO SCH (08:29)
[2016-11-09] MEDS: ISOSORBIDE MONONITRATE(SR)30 MG TAB PO SCH (08:30)
[2016-11-09] MEDS: NIFEdipine (XL) 60 MG TAB PO SCH (08:30)
[2016-11-09] MEDS: INSULIN ASPART [NOVOLOG] 3 ML PEN SC SCH ×6 (08:37→17:34)
[2016-11-09] MEDS: MULTIVITAMINS THERAPEUTIC TAB PO SCH (08:41)
[2016-11-09] MEDS: GABAPENTIN 300 MG CAP PO SCH (08:41)
[2016-11-09] MEDS: FERROUS SULFATE (EC) 325 MG TAB PO SCH (08:42)
[2016-11-09] MEDS: SUCRALFATE 1 GM TAB PO SCH (08:42)
--- NOTE | 2016-11-09 11:43 | PDOCDIS ---
Discharge Instructions CONDITION Patient Condition: Good HOME CARE INSTRUCTIONS: Special Diet: LOW CHOLESTEROL , LOW FAT ACTIVITY: Activity Restrictions: No Restrictions FOLLOW UP/APPOINTMENTS Follow-up Plan Follow up with your regular doctor to get your diabetes under better control Follow up with the [facility] within 7 days PRISCILLA CHO MD Nov 09, 2016 11:43
[2016-11-09] MEDS ORDERED: SULF1TAB31 PO ×2 (11:45→11:48)
[2016-11-09] MEDS ORDERED: CEPH500C PO (11:48)
--- NOTE | 2016-11-09 11:53 | DS ---
Date/Time of Note Date/Time of Note DATE: 11/09/16 TIME: 11:48 Discharge Summary Admission/Discharge Info Admit Date/Time Nov 06, 2016 at 19:20 Discharge Date/Time Discharge Diagnosis diabetic foot wound Patient Condition: Good Consults podiatry Procedures 629: duplex RLE no DVT MRI L foot 6.29 IMPRESSION: 1. Mild nonspecific marrow edema within the first distal phalanx, not definitive for osteomyelitis at this time, possibly reactive in nature. Early osteomyelitis is difficult to entirely exclude and if clinically warranted short -term follow-up MRI could be considered for further assessment. 2. Soft tissue swelling of the forefoot and first digit without drainable fluid collection, query cellulitis. 3. Intrinsic foot muscle atrophy and edema, query diabetic microangiopathy. Hx of Present Illness Chief complaint: Right big toe infection This is a 65-year-old female who comes in today for right big toe infection: Patient states that she went to go see her science teacher today and after he examined her right big toe he recommended that she come in for further evaluation. Patient states that she has been dealing with big toe of the right foot infections for some time now. She previously approximately 2 months ago did have an MRI and at that time apparently there was no signs of osteomyelitis. At the current time she has pain in her right big toe and she also has noticed swelling and redness and warmth of her right lower extremity. Apparently she did have a Doppler done at her science teacher's office yesterday and she was told that she did not have a blood clot apparently. He denies any fevers denies any chills or night sweats. Denies any shortness of breath or chest pain. Allergies: NKDA Medications: See [facility] Hospital Course Pt started on empiric abx. MRI negative for OM. Urine culture with EColi S to bactrim. Case dw science teacher who had referred pt to the [facility] in the first place. No need for surgical intervetnion at this time. Pt to be discharged on PO abx with plan for [facility] f/u this week. Of note, a1c 9. Pt advised to f/u with PCP for imrpoved DM control. HH referral placed for wound halfway Meds Active Scripts Cephalexin* (Cephalexin*) 500 Mg Capsule, 500 MG PO Q6 for 7 Days, #28 CAP Prov:PRISCILLA CHO MD 11/09/16 Sulfamethoxazole/Trimethoprim* (Bactrim Ds* Tablet) 1 Each Tablet, 2 TAB PO BID for 7 Days, #28 TAB Prov:PRISCILLA CHO MD 11/09/16 Reported Medications Isosorbide Mononitrate* (Isosorbide Mononitrate*) 30 Mg Tab.er.24h, 30 MG PO DAILY, TAB 11/06/16 Docusate Sodium* (Docusate Sodium*) 100 Mg Capsule, 100 MG PO DAILY Y for PRN, # 30 CAP 11/06/16 Nifedipine* (Nifedipine ER*) Unknown Strength Tablet.sa, 1 TAB PO DAILY, TAB.SA 11/06/16 Insulin Lispro (Humalog) 100 Unit/1 Ml Cartridge, 0 SQ WITH MEALS TAKE 8-10 UNITS WITH MEALS 11/06/16 Insulin Glargine* (Lantus*) 100 Unit/Ml Soln, 26 UNIT SC QHS, #1 VIAL 11/06/16 Omeprazole* (Omeprazole*) 40 Mg Capsule.dr, 40 MG PO DAILY, #30 CAP 11/06/16 Sucralfate* (Carafate*) 1 Gm Tab, 1 GM PO AC MEALS , TAB 11/06/16 Lisinopril* (Lisinopril*) 10 Mg Tablet, 10 MG PO DAILY, #30 TAB 11/06/16 Furosemide* (Furosemide*) 40 Mg Tablet, 60 MG PO DAILY, TAB 11/06/16 Metoprolol Succinate* (Toprol XL*) 50 Mg Tab.er.24h, 50 MG PO BID, #30 TAB 11/06/16 Levothyroxine Sodium* (Levothyroxine Sodium*) 88 Mcg Tablet, 88 MCG PO BEFORE BREAKFAST, #30 TAB 11/06/16 Gabapentin* (Gabapentin*) 300 Mg Capsule, 300 MG PO BID, #60 CAP 01/22/16 Rivaroxaban* (Xarelto*) 20 Mg Tablet, 20 MG PO WITH DINNER, TAB 01/22/16 Multivitamins* (Multivitamin*) 1 Udcap Capsule, 1 TAB PO DAILY, TAB 02/22/15 Ferrous Sulfate* (Ferrous Sulfate*) 325 Mg Tablet, 325 MG PO DAILY, TAB 02/22/15 Amiodarone Hcl* (Amiodarone Hcl*) 200 Mg Tablet, 200 MG PO DAILY, TAB 02/22/15 Lovastatin (Lovastatin) 40 Mg Tablet, 40 MG PO QHS 02/22/15 Discontinued Reported Medications Amlodipine Besylate* (Amlodipine Besylate*) 10 Mg Tablet, 10 MG PO DAILY, #30 TAB 02/04/16 Docusate Sodium* (Colace*) 100 Mg Capsule, 200 MG PO PRN, CAP 02/22/15 Levothyroxine Sodium* (Levothyroxine Sodium*) 50 Mcg Tablet, 50 MCG PO AC BREAKFAST, TAB 02/22/15 Isosorbide Mononitrate* (Isosorbide Mononitrate*) 30 Mg Tab.er.24h, 30 MG PO DAILY, TAB 02/22/15 Metoprolol Succinate* (Toprol XL*) 50 Mg Tab.er.24h, 50 MG PO DAILY, TAB 02/22/15 Discontinued Scripts Omeprazole* (Omeprazole*) 20 Mg Capsule.dr, 20 MG PO BID, #60 CAP Prov:HERI RICH MD 02/14/16 Sucralfate (Carafate) 1 Gm Tablet, 1 GM PO QID, #120 TAB Prov:HERI RICH MD 02/14/16 Furosemide* (Furosemide*) 20 Mg Tablet, 20 MG PO DAILY, #30 TAB Prov:HERI RICH MD 02/14/16 Insulin Glargine* (Lantus*) 100 Unit/Ml Soln, 24 UNIT SC QHS for 30 Days, #1 4 Refills Prov:SHEA IRAHETA S. 01/28/16 Insulin Aspart* (Novolog Insulin Pen*) 100 Unit/Ml Soln, 8 UNIT SC WITH MEALS for 30 Days, #1 4 Refills Prov:SHEA IRAHETA S. 01/28/16 Primary Care Provider Not On Staff Doctor Pending Labs Laboratory Tests Test 11/08/16 21:18 11/09/16 01:23 11/09/16 08:18 Bedside Glucose 117mg/dL (70-220) 119mg/dL (70-220) 189mg/dL (70-220) PRISCILLA CHO MD Nov 09, 2016 11:53
[2016-11-09] MEDS: COLLAGENASE 30 GM TUBE TOP SCH (12:39)
[2016-11-09] MEDS: RIVAROXABAN 20 MG TABLET PO SCH (17:32)
[2016-11-09] MEDS ORDERED: VANCOMYCIN 1.25 GM in SOD CHLORIDE 0.9% 250 ML IVPB SCH (21:00)
== END 2016-11-09 19:12 | disposition home or self-care (01) | DRG 638 ==
LOC: E/R 16:38 → PP2 19:20
PROVIDERS: ADMIT Family Medicine; ATTEND Family Medicine
DX: E11.621 Type 2 diabetes mellitus with foot ulcer (principal); N39.0 Urinary tract infection, site not specified; I10 Essential (primary) hypertension; L03.115 Cellulitis of right lower limb; I48.91 Unspecified atrial fibrillation; E03.9 Hypothyroidism, unspecified
CPT/HCPCS: 71010; 73630; 73718; 80053; 81001; 82565; 82962; 83036; 83605; 83735; 84443; 84484; 84520; 85025; 85610; 85730; 87040; 87086; 93005; 93971; J0360; J0692; J0696; J1815; J3370; J7030; J7050

== ENCOUNTER 2016-12-31 13:49 | Emergency (ER) | payer MEDICARE, OTHER ==
[~2016-12-31] VITALS: Ht 162.6 cm; Wt 9.0 kg
[~2016-12-31 13:49] MED LIST changes: +CEPH500C PO; +DOCU-159 PO; +FURO40TA4 PO; +GABA300S PO; +INSU100C SQ; +LEVO88TA3 PO; +LISI10TA2 PO; +NIFE30TA60 PO; +OMEP40CA6 PO; +RANI150T5 PO; +SUCR1TAB56 PO; +SULF1TAB31 PO; +VANC500F2 IV; +VORI200T12 PO; +WARF4TAB PO
[2016-12-31 13:51] VITALS: Ht 162.6 cm; Wt 9.0 kg
== END 2016-12-31 16:04 | disposition left against medical advice (07) ==
LOC: FTE 13:49
DX: Z53.21 Procedure and treatment not carried out due to patient leaving prior to being seen by health care provider (principal)

== ENCOUNTER 2017-07-18 13:08 | Inpatient (IN) | END 2017-07-24 22:29 | disposition home health service (06) | DRG 623 ==